=== PATIENT | male | born 1970 | race Caucasian/White ===

== ENCOUNTER 2017-11-09 09:23 | Emergency (ER) | payer OTHER ==
[2017-11-09 09:47] VITALS: BP 130/81
--- NOTE | 2017-11-09 10:04 | UC ---
Skin Complaint HPI - HPI Summary HPI Summary: 47 y/o male presents to the urgent care c/o a rash in the RT side of his scalp since Tuesday11/06/2017. Pt reports he has been traveling in a camper from [place] , They camp around her and when he was setting the tent t his head touch a web. Since then he developed rash which is getting worse sore and red and some scattered blisters. Yesterday he felt a lymph node in the posterior neck tender to touch w/ mild itchiness. Pt denies fever, ROUSE, SOB, throat tightening, chest pain, abdominal pain, N/V/D, dizziness. - History of Current Complaint Chief Complaint: UCRash Time Seen by Provider: 11/09/17 10:03 Stated Complaint: SKIN COMPLAINT HEAD Hx Obtained From: Patient Onset/Duration: Sudden Onset, Lasting Days - 3 days, Still Present, Worse Since - yesterday Skin Exposure Onset/Duration: Days Ago - 3 days Timing: Constant Onset Severity: Mild Current Severity: Moderate Pain Intensity: 4 Pain Scale Used: 0-10 Numeric Location: Discrete - RT posterior scalp Character: Pruritus, Hives, Redness Aggravating Factor(s): Touch Alleviating Factor(s): OTC Meds Associated Signs & Symptoms: Positive: Rash - posterior RT side of acalp, Tenderness - sore. Negative: Difficulty Breathing, Fever, Chills, Hoarseness, Throat Tightening, Drainage Related History: Possible Reaction to: Insect - Allergy/Home Medications Allergies/Adverse Reactions: Allergies Allergy/AdvReac Type Severity Reaction Status Date / Time morphine AdvReac Nausea Verified 11/09/17 09:45 Home Medications: Home Medications Clobetasol 0.05% OINT* 1 applic TOPICAL BID PRN 11/09/17 [History Confirmed ] Review of Systems Constitutional: Negative Skin: Rash - RT side of posterior scalp w/ some blisters and redness Eyes: Negative ENT: Other - RT posterior neck lymph node painful Respiratory: Negative Cardiovascular: Negative Gastrointestinal: Negative Genitourinary: Negative Motor: Negative Neurovascular: Negative Musculoskeletal: Negative Neurological: Negative Psychological: Negative Is Patient Immunocompromised?: No All Other Systems Reviewed And Are Negative: Yes PMH/Surg Hx/FS Hx/Imm Hx Previously Healthy: Yes - Pt denies PMHX - Surgical History Surgical History: Yes Surgery Procedure, Year, and Place: right femur surgery. choly - Family History Known Family History: Positive: Cardiac Disease, Diabetes - Social History Occupation: Employed Full-time Lives: With Family Alcohol Use: None Substance Use Type: None Smoking Status (MU): Never Smoked Tobacco Physical Exam - Summary Physical Exam Summary: Vital Signs Reviewed: Yes General: well developed, well nourished male sitting in the examining table w/o any apparent distress. Eyes: Positive: Conjunctiva Clear - PERRLA, EOMI ENT: Positive: Normal ENT inspection, Hearing grossly normal, Pharynx normal, TMs normal Neck: Positive: Supple, Nontender, Positive RT side posteroir Lymphadenopathy tender to palpation Respiratory: Positive: Chest nontender, Lungs clear, Normal breath sounds Cardiovascular: Positive: RRR, No Murmur, Pulses Normal Abdomen Description: Positive: Nontender, No Organomegaly, Soft. Negative: CVA Tenderness (R), CVA Tenderness (L) Bowel Sounds: Positive: Present Musculoskeletal: Positive: Strength Intact, ROM Intact, No Edema Neurological Exam: Normal Psychological Exam: Normal Skin: Positive: rashes - RT side of posterior scalp w/ scattered erythematous blisters in a raound distributions, warm to touch, mild swelling and mild tender to palpation. Triage Information Reviewed: Yes Vital Signs: Initial Vital Signs Temp 97.5 F 11/09/17 09:43 Pulse 78 11/09/17 09:43 Resp 16 11/09/17 09:43 BP 130/81 11/09/17 09:43 Pulse Ox 99 11/09/17 09:43 Course/Dx - Course Course Of Treatment: 47 y/o male presents to the urgent care c/o a rash in the RT side of his scalp since Tuesday11/06/2017. Pt reports he has been traveling in a camper from [place], They camp around her and when he was setting the tent t his head touch a web. Since then he developed rash which is getting worse sore and red and some scattered blisters. Yesterday he felt a lymph node in the posterior neck tender to touch w/ mild itchiness. Pt denies fever, ROUSE, SOB, throat tightening, chest pain, abdominal pain, N/V/D, dizziness. Hx obtained. Pt w/ probably w/ Contact dermatitis rash on examination. Pt Rx Prednisone PO and Bacitracin oint and advised to take Benadryl PO Advised to f/u with PCP or DR Kumari if not improvemetn of symptoms in 3 days for further treatment. Pt advised if rash worsens despite medications and he develops SOB to immediately go to the ER for further treatment. Pt understood and agreed with plan of care. - Differential Diagnoses - Skin Complaint Differential Diagnoses: Abscess, Contact Dermatitis, Local Allergic Reaction, Poison Yamini, Poison [place], Urticaria - Diagnoses Provider Diagnoses: 1- Contact dermatitis on the scalp Discharge - Sign-Out/Discharge Documenting (check all that apply): Patient Departure - D/C home All imaging exams completed and their final reports reviewed: Yes - Discharge Plan Condition: Stable Disposition: HOME Prescriptions: Bacitracin OINTMENT* 1 applic TOPICAL TID #1 tube predniSONE TAB* [Deltasone 20 MG TAB*] 20 mg PO DAILY #11 tab Patient Education Materials: Contact Dermatitis (ED) Referrals: [facility] [Outside] - If Needed Elle Kumari [Medical Doctor] - If Needed Additional Instructions: 1-Please Start taking Prednisone PO taper dose as directed 2- Take Benadryl PO q6hrs if you develop itchiness. Apply Bacitracin oin topical as directed. Avoid exposure to the sun. 3-If symptoms do not improve or worsen please f/u with your PCP or [employer] DR Kumari3 days for further evaluation and treatment. 4- If symptoms worsen and you develop SOB or difficulty breathing please go immediately to the Er for further management. - Billing Disposition and Condition Condition: STABLE Disposition: Home - Attestation Statements Provider Attestation: I was available for consult. This patient was seen by the PARTHA. The patient was not presented to, seen by, or examined by me. -Golden
== END 2017-11-09 10:25 | disposition home or self-care (01) ==
LOC: UCCORT 09:23
DX: L25.9 Unspecified contact dermatitis, unspecified cause (principal); Z88.5 Allergy status to narcotic agent
CPT/HCPCS: 99202; G0463